=== PATIENT | female | born 1935 | race Hispanic/Latino ===

== ENCOUNTER 2018-04-09 12:55 | Outpatient (CLI) | payer MEDICARE ==
--- NOTE | 2018-04-09 14:08 | Cat Scan Report ---
FINAL REPORT EXAM: CT ABDOMEN PELVIS WO CON HISTORY: MICROSCOPIC HEMATURIA TECHNIQUE: CT examination of the ABDOMEN without IV contrast CT examination of the PELVIS without IV contrast PRIORS: None. FINDINGS: Surgically absent gallbladder. A smoothly marginated hypodense right hepatic lobe lesion is nonspecific and statistically most likely reflect a cyst or hemangioma. Average CT density near that of water favoring a cyst. It measures 9 mm. Normal-appearing adrenals, pancreas, and spleen. Normal caliber abdominal aorta with severe calcified atherosclerotic plaque. Normal caliber IVC. Surgically absent right kidney. Renal clips in the right renal fossa. No mass or cyst in the right renal fossa. Nonspecific lobulated margins of the left kidney may be persistent lobation, developmental variation. Nonspecific, smoothly marginated, low density, simple appearing left renal lesions are statistically most likely cysts. One 10 mm hypodense lesion is fatty suggesting angiomyolipoma. Left ureteral stent in place with distal coil in the bladder and proximal coil in left renal upper pole. No left hydronephrosis. 1 mm, 2 mm, and 7 mm nonobstructing left renal calculi. Nonspecific slight mural thickening in the proximal ureter and slight nonspecific fat stranding adjacent to the left renal pelvis and proximal left ureter. Similar findings also noted in urinary bladder. Intact abdominal wall with evidence suggesting prior hernia repair. No retroperitoneal adenopathy. No mesenteric mass. Large hiatal hernia containing the majority of the stomach. Otherwise normal appearing stomach and duodenum. No small bowel distention in the abdomen and pelvis. No pelvic free fluid. Urinary bladder decompressed containing distal coil of left ureteral stent. Uterus not visible. No adnexal abnormality. Normal-appearing rectum and sigmoid colon. No gross ascites, free air, or colonic distention. Prominent stool in ascending and proximal transverse colon may reflect mild right-sided constipation. Normal-appearing terminal ileum. Normal appendix. IMPRESSION: Multiple nonobstructing left renal calculi without hydronephrosis and left ureteral stent in place Nonspecific fat stranding and slight mural thickening in the region of the left renal pelvis, proximal left ureter, and urinary bladder may be edema related to left ureteral stent. 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
== END 2018-04-09 12:56 | disposition home or self-care (01) ==
LOC: CT 12:55
PROVIDERS: ATTEND Urology
DX: N20.0 Calculus of kidney (principal); R31.29 Other microscopic hematuria; N13.9 Obstructive and reflux uropathy, unspecified; E78.5 Hyperlipidemia, unspecified; D64.9 Anemia, unspecified; I12.9 Hypertensive chronic kidney disease with stage 1 through stage 4 chronic kidney disease, or unspecified chronic kidney disease; N18.2 Chronic kidney disease, stage 2 (mild); K44.9 Diaphragmatic hernia without obstruction or gangrene; F41.9 Anxiety disorder, unspecified; Z90.5 Acquired absence of kidney; Z96.0 Presence of urogenital implants; Z87.891 Personal history of nicotine dependence; Z90.49 Acquired absence of other specified parts of digestive tract; Z90.710 Acquired absence of both cervix and uterus
CPT/HCPCS: 74176

== ENCOUNTER 2018-12-22 11:51 | Day surgery (SDC) | payer MEDICARE ==
--- NOTE | 2018-12-21 12:29 | Short Stay Summary ---
Short Stay Documentation Date of service: 12/21/18 Narrative H&P: Marzena Coreas. MD MIKEL/MD Sarah/Boni Lazo MD) / Dr. Higuera--ID/ / /amitted [facility] ER left stone, renal failure (SOLITARY KIDNEY)/ cyston, stent 10-19-13/ ESWL 10-27-13 / KUB residual fragment left kidney 6mm / stage ESWL vs perc/ NEPHRECTOMY YEARS AGO - STONES-INFECTION/ pt has KUB / vicodin / STAGED LEFT ESWL (MAY NEED PERC)//2 done--wants another ESWL /KUB 1cm stone/renew percocet/perc tube removed/cysto stent REMOVED/cysto, stone extraction stent--stent fell out, perc LEFT IN [id number] fragment--LITHO LINK-LOW CITRATE/IV vanco/06-15-14 cysto, dilated ureteral stricture stent/24 hour urine (08-28-14) ca oxalate,-on urocit K/clamp perc tube/KUB i-no stone,good stent & perc tube/ - removed 10-17-14. STENT EXCHANGED 12-27-15/kub -stent good position / cr 1.5/ (05-20-16) KUB left stent good/ toviaz - NR / MYBRETRIQ 50MG X4-NR OAB KIT--VESICARE 5MG X 4--KEGELS BID, CM03-16-18 - MIXED INCONTINENCE - MUSCLE WEAKNESS PK FR 3CC A SEC PVR 55CC BLADDER CAPACITY 212CC CONSIDER MEDICATION, PTNS, INTERSTIM TEST 08-23-18--KUB 8MM RENAL STONE WITH STENT / DR. SHAYNA OWENS (PACEMAKER)--NEEDS CLEARANCE TRIAL OF TOVIAZ 8MG X 4 09-12-18 - LEFT ESWL (BZ)/ KUB (09-17-18) - + FRAG / RE EVAL NOV/ RENEW TOVIAZ DISCUSSED CYSTO & LEAVING STENT OUT / NORCO / KUB NO STONE STENT IN GOOD POSITION - History Past Medical History: hypertension, hyperlipidemia Past Surgical History: Other (RT NEPHRECTOMY, ESWL, CYSTO, STENT EXCHANGE) Social history: single - Allergies and Medications Current Medications: Allergies Penicillins Allergy (Severe, Verified 06/09/14 12:00) Anaphylaxis Home Medications Medication Instructions Recorded Confirmed Last Taken Type AtorvaSTATin [Lipitor] 20 mg PO QPM 05/21/15 12/14/18 09/08/18 20:00 History Cholecalciferol (Vitamin D3) 1,000 unit PO DAILY 05/21/15 12/14/18 09/08/18 09:00 History [Vitamin D3] Folic Acid [Folvite] 1 mg PO QDAY 04/21/18 12/14/18 Unknown History Potassium Citrate [Urocit-K] 15 meq PO DAILY 04/21/18 12/14/18 Unknown History Vitamin B Complex [Super B-50 1 each PO DAILY 04/21/18 12/14/18 09/08/18 09:00 History Complex] Ibuprofen [Motrin] 800 mg PO Q8HR PRN 08/31/18 12/14/18 Unknown History Irbesartan 300 mg PO DAILY 09/10/18 12/14/18 09/09/18 07:00 History amLODIPine [Norvasc] 10 mg PO DAILY 09/10/18 12/14/18 09/09/18 08:00 History L. Acidophilus/Pectin, [place] 1 each PO DAILY 12/14/18 12/14/18 Unknown History [Acidophilus Probiotic Capsule] Active Medications Levofloxacin/Dextrose (Levaquin 250mg/50ml) 250 mg in 50 mls @ 50 mls/hr IV PREOP NR; Protocol Stop: 12/22/18 01:00 - Physical exam General appearance: no acute distress, well-nourished Integumentary: no rash, no growths HEENT: Atraumatic, PERRLA, EOMI Lungs: Clear to auscultation, Normal air movement Breasts: deferred Heart: Regular rate, No murmurs Gastrointestinal: normal Female Genitourinary: normal Rectal Exam: deferred Extremities: no ischemia, No edema Neurological: Normal gait - Brief post op/procedure progress note Date of procedure: 12/22/18 Pre-op diagnosis: left hydronephrosis (solitary kidney) Post-op diagnosis: same Procedure: cysto, rpg, ureteoscopy, stent with external string (no stone) Anesthesia: GETA Surgeon: SHAR COULTER Estimated blood loss: none Pathology: none Condition: stable - Hospital course Hospital course: macrobid & norco on chart - Disposition Condition at discharge: Stable Disposition: DC-01 TO HOME OR SELFCARE Short Stay Discharge Plan Follow up with: HEIDI QUINTEROS MD [Primary Care Provider] - 7 Days
[~2018-12-22 11:51] MED LIST: LEVAQUIN 250MG/50ML 250 MG/50 ML BAG IV NR
[2018-12-22] MEDS ORDERED: LACTATED RINGERS 1,000 ML IV SCH (12:25)
[2018-12-22] MEDS ORDERED: DIPRIVAN 10 MG/ML IV ONE (12:38)
[2018-12-22] MEDS ORDERED: SUBLIMAZE ONE (12:38)
[2018-12-22] MEDS ORDERED: XYLOCAINE MPF 2% ONE (12:39)
[2018-12-22] MEDS ORDERED: LEVAQUIN 250MG/50ML 250 MG/50 ML BAG IV NR (13:11)
--- NOTE | 2018-12-22 13:26 | Anesthesia Day of Surgery ---
Anesthesia Day of Surgery - Day of Surgery Patient Examined: Yes Patient H&P Reviewed: Yes Patient is NPO: Yes Cardiac Clearance: Yes
--- NOTE | 2018-12-22 13:29 | Anesthesia Consultation ---
Anesthesia Consult and Med Hx Date of service: 12/22/18 - Airway Anesthetic Teeth Evaluation: Poor, Chipped (Rotten teeth) ROM Head & Neck: Adequate Mental/Hyoid Distance: Adequate Mallampati Class: Class II Intubation Access Assessment: Probably Good - Pre-Operative Health Status ASA Pre-Surgery Classification: ASA3 Proposed Anesthetic Plan: General - Pulmonary Hx Smoking: Yes (STOPPED X 10 YRS) SOB: Yes (exertional dyspnea) COPD: No (UNSURE) Hx Sleep Apnea: No (MUNIR PRE SCREEN LOW RISK.) - Cardiovascular System Hx Hypertension: Yes (X 40 YRS) Hx Angina: No Hx Cardia Arrhythmia: Yes (Bradycardia, Ectopic atrial rhythms, RBBB) Hx Pacemaker: Yes ([employer] [id number]; had full cardiac w/u [id number]) - Central Nervous System Hx Neuromuscular Disorder: No Hx Back Pain: Yes Hx Psychiatric Problems: Yes (Anxiety) - Gastrointestinal Hx Gastroesophageal Reflux Disease: No - Endocrine Hx Renal Disease: Yes (CKD) Hx End Stage Renal Disease: (CKD) Hx Liver Disease: No Hx Non-Insulin Dependent Diabetes: No Hx Thyroid Disease: No - Hematic Hx Anemia: Yes - Other Systems Hx Alcohol Use: Yes (OCCAS BEER/WINE) Hx Substance Use: No Hx Cancer: No Hx Obesity: No
[2018-12-22] MEDS ORDERED: ZOFRAN IV PRN (15:19)
[2018-12-22] MEDS ORDERED: DILAUDID IV PRN (15:19)
[2018-12-22] MEDS ORDERED: NEO SYNEPHRINE/NS Syringe(OR USE) IV ONE (15:43)
[2018-12-22] MEDS ORDERED: WATER FOR IRRIG STERILE IR ONE (15:50)
[2018-12-22 17:01] VITALS: BP 162/81
--- NOTE | 2018-12-22 17:33 | Operative Report ---
PREOPERATIVE DIAGNOSES: Left hydronephrosis, solitary kidney, history of kidney stones. POSTOPERATIVE DIAGNOSES: Left hydronephrosis, solitary kidney, history of kidney stones. No stone seen. PROCEDURE: Cystoscopy, left retrograde pyelogram, left flexible ureteroscopy, stent exchange (6-Monegasque 24 cm with an external string). SURGEON: Manny Lazo MD ANESTHESIA: General. ESTIMATED BLOOD LOSS: Minimal. FLUIDS: Crystalloid. COMPLICATIONS: No complications. INDICATIONS: This patient is an 83-year-old female with a long history of stones, right nephrectomy due to kidney stones. She has had a stent exchange for some time due to persistent renal stones. She underwent for previous lithotripsy and appears to be stone free. Today, I am going to and do a second look ureteroscopy before reattempt to remove her stent. DESCRIPTION OF PROCEDURE: The patient was taken to the operative suite, placed in a supine position. After adequate general anesthesia, placed in a dorsal lithotomy position, prepped and draped in a sterile fashion. Pancystourethroscopy was performed with 22-Monegasque Storz cystoscope, no acute bladder pathology except for some mild edema. The stent could be appreciated in the left collecting system. It was engaged with a grasper and pulled to the meatus. A 0.035 wire was advanced into the renal pelvis under fluoroscopic guidance. The cystoscope was then placed. Again, we were able to place a second wire followed by flexible ureteroscopy up to the renal pelvis. No stones could be appreciated. This had some edema. Because of that, I elected to leave another stent. The ureteroscope was removed. A 6-Monegasque 24 stent with an external string was left with hopes of removing it shortly in the next few days. She tolerated the procedure well. She was extubated and taken to recovery room. She will go home on [employer] and [employer]. JOB# [id number] [facility]
--- NOTE | 2018-12-23 07:32 | Fluoroscopy Report ---
FLUOROSCOPY RETROGRADE UROGRAPHY: HISTORY: Calculus of kidney, left ureteral stent exchange. FINDINGS: Fluoroscopy was provided by radiology during retrograde urography by the urologist. 10 fluoroscopic images were captured. The images demonstrate replacement of a left ureteral stent which adequately drains the left collecting system on the final image. No ureteral stones were visualized. No images of the right pyelogram were saved. IMPRESSION: Left ureteral stent exchange.
== END 2018-12-22 11:52 | disposition home or self-care (01) ==
LOC: OR 11:51
PROVIDERS: ATTEND Urology
DX: N13.30 Unspecified hydronephrosis (principal); I12.0 Hypertensive chronic kidney disease with stage 5 chronic kidney disease or end stage renal disease; N18.6 End stage renal disease; M19.90 Unspecified osteoarthritis, unspecified site; Q60.0 Renal agenesis, unilateral; D64.9 Anemia, unspecified; E78.2 Mixed hyperlipidemia; E78.00 Pure hypercholesterolemia, unspecified; F41.9 Anxiety disorder, unspecified; Z72.89 Other problems related to lifestyle; Z87.442 Personal history of urinary calculi; Z90.710 Acquired absence of both cervix and uterus; Z90.721 Acquired absence of ovaries, unilateral; Z88.0 Allergy status to penicillin; Z87.891 Personal history of nicotine dependence; Z79.899 Other long term (current) drug therapy; Z90.5 Acquired absence of kidney; Z79.01 Long term (current) use of anticoagulants; Z95.0 Presence of cardiac pacemaker; Z90.49 Acquired absence of other specified parts of digestive tract; Z98.890 Other specified postprocedural states
CPT/HCPCS: 52332; 52351; 74420; A4217; C1758; C1769; C2617; J1956; J2370; J2405; J2704; J3010; J7120; Q9967

== ENCOUNTER 2021-07-23 10:50 | Emergency (ER) | payer MEDICARE ==
--- NOTE | 2021-07-23 11:20 | Event Note ---
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 Further treatment and workup at subsequent clinical providers discretion. Patient/guardian urged not to elope from the ED as their condition may be serious if not clinically assessed and managed. Initial orders include: Labs EKG
[2021-07-23] MEDS ORDERED: amLODIPine 5 MG TAB PO ONE (11:57)
--- NOTE | 2021-07-23 11:58 | Emergency Department Report ---
ED General Adult HPI - General Chief complaint: High BP Stated complaint: HIGH BLOOD PRESSURE 210/100 Time Seen by Provider: 07/23/21 11:19 Source: patient, RN notes reviewed, old records reviewed Mode of arrival: Ambulatory Limitations: No Limitations - History of Present Illness Initial comments: The patient was evaluated in the emergency department for symptoms described in the history of present illness. He/she was evaluated in the context of the global COVID-19 pandemic, which necessitated consideration that the patient might be at risk for infection with the virus that causes COVID-19. Institutional protocols and algorithms that pertain to the evaluation of patients at risk for COVID-19 are in a state of rapid change based on information released by regulatory bodies including the CDC and federal and state organizations. These policies and algorithms were followed during the patient's care in the emergency department. Please note that these policies, procedures and recommendations changed on a rapid basis. Cardiology: [facility], Dr. Kemi Kruse Nephrology: Dr. Reddy Past medical history: Chronic renal insufficiency, hyperlipidemia, moderate aortic valve stenosis, carotid stenosis, BMI 26.2, hypertension, anxiety, osteoporosis. Current medications include: Potassium citrate, carvedilol, Eliquis, atorvastati n, vitamin D3, and clonidine HCl, 0.1 mg, every 6 hours, as needed blood pressure greater than 160 The patient also recently started carvedilol, 6.25 mg twice daily, about 2 weeks ago, as per the instruction of her glass blowing instructor. She cannot recall what medication she was previously on. The patient was referred to the emergency room by her grocery clerk checking for asymptomatic hypertension. Reportedly, her blood pressure was found to be 229/86. The patient denies headache, neck pain, chest pain, abdominal pain, urinary symptoms. She is COVID-19 vaccinated. She reports chronic shortness of breath, and chronic fatigue, present for months. However, she indicates that if not referred to the emergency room today, she would not have presented today on her own. She takes multivitamins but otherwise denies supplements. She reports that her blood pressure is "yoyoing", and typically improves when she takes clonidine at night. This is a prescription medication for her. The patient states that she checks her blood pressure frequently, and this contributes to some anxiety. She is going to follow-up with her private glass blowing instructor in 2 weeks. Today was her first visit with the aforementioned grocery clerk checking. She takes potassium citrate for kidney stone prevention. She has a solitary kidney. Improves with: none Worsens with: none - Related Data Home Medications Medication Instructions Recorded Confirmed Last Taken AtorvaSTATin [Lipitor] 20 mg PO QPM 05/21/15 12/22/18 12/21/18 09:00 Cholecalciferol (Vitamin D3) 1,000 unit PO DAILY 05/21/15 12/22/18 12/21/18 09:00 [Vitamin D3] Folic Acid [Folvite] 1 mg PO QDAY 04/21/18 12/22/18 12/21/18 09:00 Vitamin B Complex [Super B-50 1 each PO DAILY 04/21/18 12/14/18 09/08/18 09:00 Complex] L. Acidophilus/Pectin, [place] 1 each PO DAILY 12/14/18 12/22/18 12/21/18 09:00 [Acidophilus Probiotic Capsule] Previous Rx's Medication Instructions Recorded Last Taken Type amLODIPine 10 mg PO DAILY #30 tab 07/23/21 Unknown Rx Allergies Allergy/AdvReac Type Severity Reaction Status Date / Time Penicillins Allergy Severe Anaphylaxis Verified 06/09/14 12:00 ED Review of Systems ROS: Stated complaint: HIGH BLOOD PRESSURE 210/100 Other details as noted in HPI Constitutional: denies: chills, fever Eyes: denies: eye discharge ENT: denies: epistaxis Respiratory: shortness of breath (Chronic shortness of breath). denies: cough Cardiovascular: dyspnea on exertion. denies: chest pain Gastrointestinal: denies: abdominal pain, nausea, vomiting, hematemesis, melena, hematochezia Genitourinary: denies: dysuria Musculoskeletal: denies: back pain Skin: denies: lesions Neurological: weakness. denies: headache ED Past Medical Hx - Past Medical History Hx Hypertension: Yes (X 40 YRS) Hx Liver Disease: No Hx Renal Disease: Yes (CKD) Hx Arthritis: Yes Hx Kidney Stones: Yes Hx COPD: No (UNSURE) Hx HIV: No Additional medical history: angiomyolyphoma - Surgical History Hx Pacemaker: Yes ([employer] [id number]; had full cardiac w/u [id number]) Hx Cholecystectomy: Yes Hx Appendectomy: Yes Additional Surgical History: right kidney removedhysterectomyMultiple lithotripsies and stent on the left which is now removed. - Social History Smoking Status: Former Smoker Substance Use Type: None - Medications Home Medications: Home Medications Medication Instructions Recorded Confirmed Last Taken Type AtorvaSTATin [Lipitor] 20 mg PO QPM 05/21/15 12/22/18 12/21/18 09:00 History Cholecalciferol (Vitamin D3) 1,000 unit PO DAILY 05/21/15 12/22/18 12/21/18 09:00 History [Vitamin D3] Folic Acid [Folvite] 1 mg PO QDAY 04/21/18 12/22/18 12/21/18 09:00 History Vitamin B Complex [Super B-50 1 each PO DAILY 04/21/18 12/14/18 09/08/18 09:00 History Complex] L. Acidophilus/Pectin, [place] 1 each PO DAILY 12/14/18 12/22/18 12/21/18 09:00 History [Acidophilus Probiotic Capsule] amLODIPine 10 mg PO DAILY #30 tab 07/23/21 Unknown Rx ED Physical Exam - General Limitations: No Limitations General appearance: alert, in no apparent distress - Head Head exam: Present: atraumatic, normocephalic - Eye Eye exam: Present: normal appearance, PERRL, EOMI, other (Visual acuity intact to finger counting, color perception, reading at a close distance). Absent: nystagmus - ENT ENT exam: Present: normal exam, normal orophraynx, mucous membranes moist, normal external ear exam - Neck Neck exam: Present: normal inspection, full ROM. Absent: tenderness, men ingismus - Respiratory Respiratory exam: Present: normal lung sounds bilaterally. Absent: respiratory distress, wheezes, rales, rhonchi, stridor, chest wall tenderness, accessory muscle use, decreased breath sounds, prolonged expiratory - Cardiovascular Cardiovascular Exam: Present: regular rate, normal rhythm, systolic murmur (3 out of 6 crescendo decrescendo systolic murmur, heard strongest at the right and left second intercostal space). Absent: diastolic murmur, rubs, gallop - GI/Abdominal GI/Abdominal exam: Present: soft. Absent: distended, tenderness, guarding, rebound, rigid, pulsatile mass - Extremities Exam Extremities exam: Present: normal inspection, full ROM, other (2+ pulses noted in the bilateral upper and lower extremities. There is no palpable cord. negative Homans sign. Muscular compartments are soft. The pelvis is stable.). Absent: pedal edema, calf tenderness - Back Exam Back exam: Present: normal inspection, full ROM. Absent: tenderness, CVA tenderness (R), CVA tenderness (L), paraspinal tenderness, vertebral tenderness - Neurological Exam Neurological exam: Present: alert, oriented X3, normal gait, other (No facial dr oop. Tongue midline. Extraocular movements intact bilaterally. Facial sensation intact to light touch in V1, V2, V3 distribution bilaterally. 5 and a 5 strength in 4 extremities. Sensation intact to light touch in 4 extremities.). Absent: motor sensory deficit - Psychiatric Psychiatric exam: Present: normal affect, normal mood - Skin Skin exam: Present: warm, dry, intact, normal color. Absent: rash ED Course Vital Signs 07/23/21 07/23/21 07/23/21 11:32 12:33 13:27 Temperature 98.3 F Pulse Rate 60 60 66 Respiratory 16 Rate Blood Pressure 204/88 Blood Pressure 229/86 158/77 [Right] O2 Sat by Pulse 99 Oximetry ED Medical Decision Making - Lab Data Result diagrams: 07/23/21 11:43 07/23/21 11:43 Vital Signs 07/23/21 07/23/21 07/23/21 11:32 12:33 13:27 Temperature 98.3 F Pulse Rate 60 60 66 Respiratory 16 Rate Blood Pressure 204/88 Blood Pressure 229/86 158/77 [Right] O2 Sat by Pulse 99 Oximetry Lab Results 07/23/21 07/23/21 07/23/21 Range/Units 11:43 11:43 11:43 WBC 7.3 (4.5-11.0) K/mm3 RBC 4.05 (3.65-5.03) M/mm3 Hgb 9.9 L (10.1-14.3) gm/dl Hct 31.5 (30.3-42.9) % MCV 78 L (79-97) fl MCH 24 L (28-32) pg MCHC 31 (30-34) % RDW 16.0 H (13.2-15.2) % Plt Count 325 (140-440) K/mm3 Lymph % (Auto) 15.5 (13.4-35.0) % [place] % (Auto) 8.8 H (0.0-7.3) % Eos % (Auto) 2.0 (0.0-4.3) % Baso % (Auto) 0.7 (0.0-1.8) % Lymph # (Auto) 1.1 L (1.2-5.4) K/mm3 [place] # (Auto) 0.6 (0.0-0.8) K/mm3 Eos # (Auto) 0.1 (0.0-0.4) K/mm3 Baso # (Auto) 0.0 (0.0-0.1) K/mm3 Seg Neutrophils % 73.0 H (40.0-70.0) % Seg Neutrophils # 5.3 (1.8-7.7) K/mm3 Sodium 138 (137-145) mmol/L Potassium 5.6 H (3.6-5.0) mmol/L Chloride 103.9 (98-107) mmol/L Carbon Dioxide 24 (22-30) mmol/L Anion Gap 16 mmol/L BUN 24 H (7-17) mg/dL Creatinine 1.7 H (0.6-1.2) mg/dL Estimated GFR 29 ml/min BUN/Creatinine Ratio 14 % Glucose 114 H (65-100) mg/dL Calcium 9.8 (8.4-10.2) mg/dL Total Bilirubin 0.20 (0.1-1.2) mg/dL AST 13 (5-40) units/L ALT 8 (7-56) units/L Alkaline Phosphatase 74 (35-129) units/L Troponin T < 0.010 (0.00-0.029) ng/mL Total Protein 6.9 (6.3-8.2) g/dL Albumin 4.2 (3.9-5) g/dL Albumin/Globulin Ratio 1.6 % - EKG Data -: EKG Interpreted by Md EKG shows normal: sinus rhythm Rate: normal - EKG Data 07/23/21 13:46 The EKG today is interpreted at 11: 59 Sinus rhythm, rate 60 bpm. AL interval 228 ms. Left axis deviation. Left anterior fascicular block. Left ventricular hypertrophy. Incomplete right bundle branch block. Denies chest pain. This is an abnormal EKG. This is not a STEMI. - Medical Decision Making Differential diagnosis, including but not limited to: Hypertension, aortic stenosis, chronic renal insufficiency, encounter for medical screening exam ination Assessment and plan: 86-year-old female, who is afebrile with reassuring vital signs with exception of chronic hypertension. She was referred here for asymptomatic hypertension. Please reference the [employer] clinical policy on asymptomatic hypertension. Laboratory studies and EKG were ordered prior to my personal evaluation. Renal insufficiency is chronic. Potassium of 5.7 is reviewed and appreciated, likely secondary to underlying potassium citrate. Patient felt improved after observation here in the emergency room, and administration of Norvasc. Contacted covering cardiology, Dr. Carson, and discussed the patient's history, physical, and overall clinical impression. Patient will continue carvedilol, 6.25 twice daily, and we will initiate Norvasc, 10 mg daily. Patient to follow- up with her outpatient glass blowing instructor within the next week. She will call to make an expedited appointment. We will temporarily withhold potassium citrate, patient will need to follow-up with her primary care doctor, glass blowing instructor, or grocery clerk checking for repeat basic metabolic panel to check on potassium, and renal function. The patient does not want to be admitted to the hospital, and endorsed reliability and ability to follow-up as an outpatient. She was observed here for a prolonged period of time in emergency room without clinical deterioration. I suspect that her chronic fatigue and shortness of breath are likely secondary to advanced age, physical deconditioning, as well as her aortic stenosis. All questions answered with this patient, she endorsed understanding of instructions. Return precautions were reviewed Critical care attestation.: If time is entered above; I have spent that time in minutes in the direct care of this critically ill patient, excluding procedure time. ED Disposition Clinical Impression: Hypertension, Renal insufficiency, Aortic stenosis Disposition: 01 HOME / SELF CARE / HOMELESS Is pt being admited?: No Does the pt Need Aspirin: No Condition: Good Instructions: Hypertension (ED) Additional Instructions: Please continue carvedilol, 6.25 mg, twice daily as directed. Please continue clonidine, 0.1 mg, every 6 hours as needed for blood pressure greater than 160 mmHg. Temporarily discontinue potassium citrate tablets/medication, and follow-up with either your primary care doctor, glass blowing instructor or grocery clerk checking within the next 5 to 7 days for repeat basic metabolic panel/potassium check. In addition, would recommend that patient will check blood pressure twice daily, once in the morning, and once in the evening. Would not recommend checking blood pressure additionally, because checking blood pressure may lead to anxiety, which may lead to high blood pressure. Recommend that patient consume 2 to 3 cups of water per day, and avoid excessive salt consumption. Participate in physical activity and exercise as tolerated. Patient may also continue Eliquis, atorvastatin, and vitamin D3. Patient will start Norvasc, 10 mg daily. Please make certain to follow-up with your primary care doctor, glass blowing instructor or grocery clerk checking within the next 7 days for repeat blood pressure check. Please return to the emergency room right away with new pain, worsened pain, migration of pain, projectile vomiting, change in mental status, confusion, inability to tolerate liquid feeds, chest pain, new/different shortness of breath, or any new, worsened or different symptoms not present on the initial emergency room evaluation Referrals: JOSE ORTIZ MD [Staff Physician] - 3-5 Days JIMY REDDY MD [Staff Physician] - as needed UMA OWENS MD [Staff Physician] - 7-10 days
[2021-07-23 12:09] LABS: Basophils % (Auto) 0.7 % (0.0-1.8); Eosinophils # (Auto) 0.1 K/mm3 (0.0-0.4); Hematocrit 31.5 % (30.3-42.9); Hemoglobin 9.9 gm/dl (10.1-14.3); Lymphocytes # (Auto) 1.1 K/mm3 (1.2-5.4); Lymphocytes % (Auto) 15.5 % (13.4-35.0); Mean Corpuscular HGB Conc 31 % (30-34); Mean Corpuscular Volume 78 fl (79-97); Monocytes # (Auto) 0.6 K/mm3 (0.0-0.8); Monocytes % (Auto) 8.8 % (0.0-7.3); Platelet Count 325 K/mm3 (140-440); Red Blood Count 4.05 M/mm3 (3.65-5.03)
[2021-07-23 12:23] LABS: Albumin 4.2 g/dL (3.9-5); Calcium 9.8 mg/dL (8.4-10.2)
[2021-07-23] MEDS ORDERED: SODIUM POLYSTYRENE 15 GM/60 ML ORAL LIQD PO ONE (13:16)
[2021-07-23 15:09] VITALS: BP 202/94
--- NOTE | 2021-07-24 10:04 | Electrocardiograph Report ---
[facility] Test Date: 2021-07-23 Test Time: 11:59:16 Pat Name: BRAYDEN SALGADO Department: Room: Gender: F Auto Claim Representative: RADHA CASTANO: 1935 Requested By: SHERRI HERNANDEZ Order Number: [id number] Reading MD: Jeremy Shah Measurements Intervals [place] Rate: 60 P: ID: [id number] QRS: -50 QRSD: 120 T: 115 QT: 452 QTc: 452 Interpretive Statements Atrial-paced complexes Prolonged ID interval RBBB LVH with IVCD, LAD and secondary repol abnrm No previous ECG available for comparison Electronically Signed On 07-24-2021 10:03:59 EDT by Jeremy Shah
== END 2021-07-23 15:06 | disposition home or self-care (01) ==
LOC: ED 10:50
DX: I12.9 Hypertensive chronic kidney disease with stage 1 through stage 4 chronic kidney disease, or unspecified chronic kidney disease (principal); N18.9 Chronic kidney disease, unspecified; I35.0 Nonrheumatic aortic (valve) stenosis; M19.90 Unspecified osteoarthritis, unspecified site; Z87.442 Personal history of urinary calculi; Z86.018 Personal history of other benign neoplasm; Z98.890 Other specified postprocedural states; Z87.891 Personal history of nicotine dependence; Z88.0 Allergy status to penicillin
CPT/HCPCS: 36415; 80053; 84132; 84484; 85025; 93005; 99283

== ENCOUNTER 2021-09-12 17:22 | Emergency (ER) | payer MEDICARE ==
--- NOTE | 2021-09-12 18:40 | Event Note ---
ED Screening Note ED Screening Note: Patient is a 86-year-old female sent by Dr. Ann, ventilator specialist She states that she had a renal ultrasound performed 2 days ago and just got the results back today Was advised that she has a new left renal mass She states that she has a history of a right renal mass which led to a nephrectomy in the s She states over the last month she has had difficulty with her blood pressure She states that she was sent here due to hypertension and new renal mass This initial assessment/diagnostic orders/clinical plan/treatment(s) is/are subject to change based on patients health status, clinical progression and re- assessment by fellow clinical providers in the ED. Further treatment and workup at subsequent clinical providers discretion. Patient/guardian urged not to elope from the ED as their condition may be serious if not clinically assessed and managed. Initial orders include: labs, US, UA MAIN ed for MD arriaza
[2021-09-12 19:06] LABS: Basophils % (Auto) 0.7 % (0.0-1.8); Eosinophils # (Auto) 0.1 K/mm3 (0.0-0.4); Eosinophils % (Auto) 2.1 % (0.0-4.3); Hematocrit 31.5 % (30.3-42.9); Lymphocytes # (Auto) 1.2 K/mm3 (1.2-5.4); Lymphocytes % (Auto) 19.1 % (13.4-35.0); Mean Corpuscular HGB Conc 32 % (30-34); Mean Corpuscular Volume 79 fl (79-97); Monocytes # (Auto) 0.6 K/mm3 (0.0-0.8); Monocytes % (Auto) 9.1 % (0.0-7.3); Platelet Count 302 K/mm3 (140-440); Red Blood Count 4.01 M/mm3 (3.65-5.03); Red Cell Distribution Width 18.4 % (13.2-15.2)
[2021-09-12 19:26] LABS: Albumin 4.3 g/dL (3.9-5); Calcium 9.7 mg/dL (8.4-10.2)
[2021-09-12] MEDS ORDERED: cloNIDine 0.2 MG TAB PO ONE (21:14)
--- NOTE | 2021-09-12 21:27 | Emergency Department Report ---
HPI - General Chief Complaint: Recheck/Abnormal Lab/Rx Time Seen by Provider: 09/12/21 21:13 - HPI HPI: Room 36 The patient is an 86-year-old female present with chief abnormal renal ultrasound. The patient states she was receiving an outpatient evaluation of her kidneys and had a renal ultrasound performed as an outpatient earlier this week. The patient states her son received a telephone call from the transmission tester Dr. Reddy telling him that the patient had a mass on her kidney and that they should come to the emergency department. When asked how she is feeling the patient states she feels "pretty good" right now as she says she has felt fatigued earlier but she now believes she has got enough rest. Patient denies any other complaints ED Past Medical Hx - Past Medical History Hx Hypertension: Yes (X 40 YRS) Hx Renal Disease: Yes (CKD) Hx Arthritis: Yes Hx Kidney Stones: Yes Additional medical history: angiomyolyphoma - Surgical History Hx Pacemaker: Yes ([employer] [id number]; had full cardiac w/u [id number]) Hx Cholecystectomy: Yes Hx Appendectomy: Yes Additional Surgical History: right kidney removedhysterectomyMultiple lithotripsies and stent on the left which is now removed. - Family History Family history: no significant - Social History Smoking Status: Former Smoker (None [id number]) Substance Use Type: None - Medications Home Medications: Home Medications Medication Instructions Recorded Confirmed Last Taken Type AtorvaSTATin [Lipitor] 20 mg PO QPM 05/21/15 12/22/18 12/21/18 09:00 History Cholecalciferol (Vitamin D3) 1,000 unit PO DAILY 05/21/15 12/22/18 12/21/18 09:00 History [Vitamin D3] Folic Acid [Folvite] 1 mg PO QDAY 04/21/18 12/22/18 12/21/18 09:00 History Vitamin B Complex [Super B-50 1 each PO DAILY 04/21/18 12/14/18 09/08/18 09:00 History Complex] L. Acidophilus/Pectin, [place] 1 each PO DAILY 12/14/18 12/22/18 12/21/18 09:00 History [Acidophilus Probiotic Capsule] amLODIPine 10 mg PO DAILY #30 tab 07/23/21 Unknown Rx levoFLOXacin [Levaquin TAB] 500 mg PO QDAY #10 tablet 09/12/21 Unknown Rx ED Review of Systems ROS: Stated complaint: SENT BY DR SPENCE OFFICE Other details as noted in HPI Physical Exam - Physical Exam Vital Signs: Vital Signs 09/12/21 17:28 Temperature 98.1 F Pulse Rate 60 Respiratory 24 Rate Blood Pressure 208/89 O2 Sat by Pulse 99 Oximetry ED Course Vital Signs 09/12/21 17:28 Temperature 98.1 F Pulse Rate 60 Respiratory 24 Rate Blood Pressure 208/89 O2 Sat by Pulse 99 Oximetry - Consultations Consultation #1: 09/12/21 21:28 Prosthetic Lab Technician paged 09/12/21 21:[address] Kilgore- will review patient's records and call back 09/12/21 21:[address] Kilgore-states outpatient ultrasound showed moderate left hydronephrosis with an absent right kidney and recommended a CT abdomen pelvis. He states the patient had an appointment with a urologist Dr. Elio Black this afternoon however staff has been unable to contact the family. The Son was finally reached and decided to bring patient to the emergency department 09/12/21 21:[address] Chauhan- may have to transfer to [facility] where we have privileges. Will decide after CT abdomen pelvis 09/12/21 22:[address] Chauhan-can have patient follow-up in office tomorrow or day after. ED Medical Decision Making - Lab Data Result diagrams: 09/12/21 18:46 09/12/21 18:46 Laboratory Tests 09/12/21 09/12/21 09/12/21 18:46 18:46 22:49 WBC 6.2 RBC 4.01 Hgb 10.0 L Hct 31.5 MCV 79 MCH 25 L MCHC 32 RDW 18.4 H Plt Count 302 Lymph % (Auto) 19.1 [place] % (Auto) 9.1 H Eos % (Auto) 2.1 Baso % (Auto) 0.7 Lymph # (Auto) 1.2 [place] # (Auto) 0.6 Eos # (Auto) 0.1 Baso # (Auto) 0.0 Seg Neutrophils % 69.0 Seg Neutrophils # 4.3 Sodium 139 Potassium 5.1 H Chloride 101.3 Carbon Dioxide 24 Anion Gap 19 BUN 30 H Creatinine 1.8 H Estimated GFR 27 BUN/Creatinine Ratio 17 Glucose 107 H Calcium 9.7 Total Bilirubin 0.20 AST 14 ALT 10 Alkaline Phosphatase 74 Total Protein 6.9 Albumin 4.3 Albumin/Globulin Ratio 1.7 Urine Color Yellow Urine Turbidity Cloudy Urine pH 6.0 Ur Specific [place] 1.015 Urine Protein 100 mg/dl Urine Glucose (UA) Neg Urine Ketones Tr Urine Blood Neg Urine Nitrite Neg Urine Bilirubin Neg Urine Urobilinogen < 2.0 Ur Leukocyte Esterase Sm Urine WBC (Auto) 115.0 H Urine RBC (Auto) 95.0 U Epithel Cells (Auto) 3.0 Urine Yeast (Budding) 3+ - Radiology Data Radiology results: report reviewed (CT abdomen pelvis), image reviewed (CT abdomen pelvis) [facility] [address] [place] [address] Cat Scan Report Signed Patient: BRAYDEN SALGADO MR# : [id number] : 1935 Acct:[id number] Age/Sex: 86 / F ADM Date: 09/12/21 Loc: ED Attending Dr: Ordering Physician: LELAND NOLAN MD Date of Service: 09/12/21 Procedure(s): CT abdomen pelvis wo con Accession Number(s): [id number] cc: LELAND NOLAN MD CT ABDOMEN AND PELVIS WITHOUT CONTRAST INDICATION / CLINICAL INFORMATION: History of abnormal renal ultrasound. TECHNIQUE: Axial CT images were obtained through the abdomen and pelvis without IV contrast. All CT scans at this location are performed using CT dose reduction for ALARA by means of automated exposure control. COMPARISON: 04/09/2018 FINDINGS: LOWER CHEST: There is a large hiatal hernia containing the entirety of the stomach, not significant change from prior CT. AORTA / ARTERIES: Moderate atherosclerotic calcification without acute abnormality. IVC / VEINS: No significant abnormality. LYMPH NODES: No significant adenopathy. COLON: Diverticulosis without acute inflammation. APPENDIX: No significant abnormality. STOMACH / SMALL BOWEL: Large hiatal hernia with the entirety of the stomach within the hernia. PERITONEUM: No free fluid. No free air. No fluid collection. LIVER: No significant abnormality. GALLBLADDER: Cholecystectomy. BILE DUCTS: No significant abnormality. PANCREAS: No significant abnormality. SPLEEN: No significant abnormality. ADRENALS: No si gnificant abnormality. RIGHT KIDNEY / URETER: Surgically absent kidney but the distal ureter remains and has periureteral inflammation. LEFT KIDNEY / URETER: Multiple calcifications are seen scattered throughout the kidney with the largest calcification measuring up to 0.7 cm. There are multiple renal cysts. There is prominence of the extra renal pelvis. URINARY BLADDER: No significant abnormality. REPRODUCTIVE ORGANS: Uterus is absent. No significant adnexal abnormality. SKELETAL SYSTEM: No significant abnormality. ADDITIONAL FINDINGS: Multiple mesh coils are noted in the anterior abdominal wall. IMPRESSION: 1. Patient is status post right nephrectomy. The distal portion of the right ureter is intact and demonstrates periureteral inflammation suggesting ureteritis. 2. There is nonobstructing nephrolithiasis of the left kidney with no hydronephrosis but multiple renal cysts and a prominent extrarenal pelvis. 3. There is a large hiatal hernia containing the entirety of the stomach, not significant change from previous CT. 4. Other findings as above Signer Name: Porfirio Landon DO Signed: 09/12/2021 10:21 PM Workstation Name: [id number] Transcribed By: SHANNON Dictated By: PORFIRIO LANDON DO Electronically Authenticated By: PORFIRIO LANDON DO Signed Date/Time: 09/12/212220 DD/ 10 TD/TT: Print Cancel Critical care attestation.: If time is entered above; I have spent that time in minutes in the direct care of this critically ill patient, excluding procedure time. ED Disposition Clinical Impression: UTI (urinary tract infection), Renal cyst Disposition: 01 HOME / SELF CARE / HOMELESS Is pt being admited?: No Does the pt Need Aspirin: No Condition: Stable Instructions: Urinary Tract Infection, Adult Additional Instructions: Return to the emergency department should you develop worsening symptoms, inability to tolerate food or liquids, high fever or any other concerns Prescriptions: levoFLOXacin [Levaquin TAB] 500 mg PO QDAY #10 tablet Referrals: Dr. Black, [place] [facility] [Other] - KIRAN (Contact your urologist at 08:30 to schedule an appointment to be seen 09/13/2021 or 09/14/2021) Time of Disposition: 23:15
--- NOTE | 2021-09-12 22:26 | Cat Scan Report ---
CT ABDOMEN AND PELVIS WITHOUT CONTRAST INDICATION / CLINICAL INFORMATION: History of abnormal renal ultrasound. TECHNIQUE: Axial CT images were obtained through the abdomen and pelvis without IV contrast. All CT scans at this location are performed using CT dose reduction for ALARA by means of automated exposure control. COMPARISON: 04/09/2018 FINDINGS: LOWER CHEST: There is a large hiatal hernia containing the entirety of the stomach, not significant c hange from prior CT. AORTA / ARTERIES: Moderate atherosclerotic calcification without acute abnormality. IVC / VEINS: No significant abnormality. LYMPH NODES: No significant adenopathy. COLON: Diverticulosis without acute inflammation. APPENDIX: No significant abnormality. STOMACH / SMALL BOWEL: Large hiatal hernia with the entirety of the stomach within the hernia. PERITONEUM: No free fluid. No free air. No fluid collection. LIVER: No significant abnormality. GALLBLADDER: Cholecystectomy. BILE DUCTS: No significant abnormality. PANCREAS: No significant abnormality. SPLEEN: No significant abnormality. ADRENALS: No significant abnormality. RIGHT KIDNEY / URETER: Surgically absent kidney but the distal ureter remains and has periureteral in flammation. LEFT KIDNEY / URETER: Multiple calcifications are seen scattered throughout the kidney with the large st calcification measuring up to 0.7 cm. There are multiple renal cysts. There is prominence of the e xtra renal pelvis. URINARY BLADDER: No significant abnormality. REPRODUCTIVE ORGANS: Uterus is absent. No significant adnexal abnormality. SKELETAL SYSTEM: No significant abnormality. ADDITIONAL FINDINGS: Multiple mesh coils are noted in the anterior abdominal wall. IMPRESSION: 1. Patient is status post right nephrectomy. The distal portion of the right ureter is intact and dem onstrates periureteral inflammation suggesting ureteritis. 2. There is nonobstructing nephrolithiasis of the left kidney with no hydronephrosis but multiple kamlesh al cysts and a prominent extrarenal pelvis. 3. There is a large hiatal hernia containing the entirety of the stomach, not significant change from previous CT. 4. Other findings as above Signer Name: Porfirio Tom DO Signed: 09/12/2021 10:21 PM Workstation Name: [id number]
--- NOTE | 2021-09-12 22:40 | Ultrasound Report ---
ULTRASOUND RENAL INDICATION / CLINICAL INFORMATION: hx of one kidney, pt reports left renal mass. COMPARISON: CT abdomen pelvis from same date. FINDINGS: RIGHT KIDNEY: Surgically absent. LEFT KIDNEY: Length = 11.6 cm. - Echogenicity: Mildly echogenic. - Cortical Thickness: Normal. - Hydronephrosis: Mild pelviectasis but no definite hydronephrosis. - Cyst / Mass: Multiple simple appearing cysts measuring up to 2.6 cm. - Stones: None seen. URINARY BLADDER: No significant abnormality. FREE FLUID: None. ADDITIONAL FINDINGS: None. IMPRESSION: 1. Mild left renal pelviectasis but no definite hydronephrosis. 2. Multiple left renal simple cysts. 3. Absent right kidney. Signer Name: Suzanne Us MD Signed: 09/12/2021 10:36 PM Workstation Name: [id number]
[2021-09-12 22:58] LABS: Bilirubin,Urine NEG (Negative); Blood,Urine NEG (Negative); Color,Urine Yellow (Yellow); Urobilinogen,Urine < 2.0 mg/dL (<2.0)
[2021-09-13 01:33] VITALS: BP 153/78
== END 2021-09-13 01:34 | disposition home or self-care (01) ==
LOC: ED 17:22
DX: N39.0 Urinary tract infection, site not specified (principal); N28.1 Cyst of kidney, acquired; I12.9 Hypertensive chronic kidney disease with stage 1 through stage 4 chronic kidney disease, or unspecified chronic kidney disease; N18.9 Chronic kidney disease, unspecified; M19.90 Unspecified osteoarthritis, unspecified site; Z87.891 Personal history of nicotine dependence; Z90.49 Acquired absence of other specified parts of digestive tract; Z88.0 Allergy status to penicillin; Z79.899 Other long term (current) drug therapy
CPT/HCPCS: 36415; 74176; 76775; 80053; 81001; 85025; 99284

== ENCOUNTER 2021-12-11 08:55 | Outpatient (CLI) | payer MEDICARE ==
[2021-12-11] MEDS ORDERED: FUROSEMIDE 20 MG/2 ML INJ IV NR (09:35)
[2021-12-11 10:21] VITALS: BP 168/84
--- NOTE | 2021-12-11 12:18 | Nuclear Medicine Report ---
Renal Scan HISTORY: N13.39 OTHER HYDRONEPHROSIS. Here to evaluate left renal hydronephrosis and left renal func tion, right kidney is surgically absent TECHNIQUE: Patient was given 5.5 mCi of technetium MAG3 and 20 mg of Lasix IV 20 minutes postinjecti on. COMPARISON: CT abdomen/pelvis from 09/12/2021 and 04/09/2018 FINDINGS: Radiotracer concentration in the left renal parenchyma is noted with fairly prompt concent ration and the collecting system. There is also fairly prompt excretion reaching the urinary bladder. There is dilatation of the left renal pelvis which is persistent on all of the images but again ther e is excretion reaching the bladder which goes against any high-grade obstruction. Normalized ERPF MAG3 in mL per minute is 75. The time activity curve shows general radiotracer accumu lation up to approximately 20 minutes where a plateau has reached. At the 20 minute george, IV Lasix wa s given and the plateau is relatively maintained over the next 6 minutes (26 minutes total) until the re is a gentle gradual excretion. The time from Lasix to half Lasix is greater than 20 minutes. IMPRESSION: Abnormal left kidney as outlined above. Signer Name: Kwame Dennison MD Signed: 12/11/2021 12:13 PM Workstation Name: [id number]
== END 2021-12-11 08:56 | disposition home or self-care (01) ==
LOC: NM 08:55
PROVIDERS: ATTEND Urology
DX: N13.30 Unspecified hydronephrosis (principal)
CPT/HCPCS: 78708; A9562; J1940

== ENCOUNTER 2022-01-06 05:50 | Day surgery (SDC) | payer MEDICARE ==
[2022-01-02 13:02] LABS: Hematocrit 29.6 % (30.3-42.9); Hemoglobin 9.9 gm/dl (10.1-14.3); Mean Corpuscular HGB Conc 34 % (30-34); Mean Corpuscular Volume 76 fl (79-97); Platelet Count 290 K/mm3 (140-440); Red Blood Count 3.88 M/mm3 (3.65-5.03); Red Cell Distribution Width 16.9 % (13.2-15.2)
[2022-01-02 13:15] LABS: Albumin 4.4 g/dL (3.9-5); Calcium 10.2 mg/dL (8.4-10.2)
--- NOTE | 2022-01-02 14:02 | Anesthesia Consultation ---
Anesthesia Consult and Med Hx Date of service: 01/06/22 - Airway Anesthetic Teeth Evaluation: Poor (evidence of decay; denies loose teeth) ROM Head & Neck: Adequate Mental/Hyoid Distance: Adequate Mallampati Class: Class II Intubation Access Assessment: Probably Good (previous LMA 4) - Pulmonary Exam CTA: Yes - Cardiac Exam Cardiac Exam: RRR (grade 2/6 systolic murmur) - Pre-Operative Health Status ASA Pre-Surgery Classification: ASA3 Proposed Anesthetic Plan: General - Pulmonary Hx Smoking: Yes (former smoker quit 13yrs) SOB: Yes (mild DUONG; stable) COPD: (PT UNSURE) - Cardiovascular System Hx Hypertension: Yes (labile) Hx Heart Attack/AMI: No Hx Percutaneous Transluminal Coronary Angioplasty (PTCA): No Hx Cardia Arrhythmia: Yes (hx AVB; paroxysmal a-fib, last dose eliquis 01/01/22)) Hx Pacemaker: Yes Hx Valvular Heart Disease: Yes (mild ) Hx Heart Murmur: Yes - Central Nervous System CVA: No Hx Back Pain: Yes - Gastrointestinal Hx Gastroesophageal Reflux Disease: No (large hiatal hernia) - Endocrine Hx Renal Disease: Yes (CKD; hx nephrectomy) Hx Liver Disease: No Hx Insulin Dependent Diabetes: No Hx Non-Insulin Dependent Diabetes: No Hx Thyroid Disease: No - Hematic Hx Anemia: Yes - Other Systems Hx Obesity: No - Additional Comments Anesthesia Medical History Comments: No hx anesthetic complications. TTE 08/2021 shows normal LV function, mild . Most recent cardiology office note reviewed. Patient had recent preop medical evaluations; records requested.
[~2022-01-06 05:50] MED LIST changes: +LACTATED RINGERS 1,000 ML IV SCH; -LEVAQUIN 250MG/50ML 250 MG/50 ML BAG IV NR
[2022-01-06] MEDS ORDERED: LACTATED RINGERS 1,000 ML IV SCH (06:00)
[2022-01-06 06:52] LABS: INR 0.84 (0.87-1.13)
[2022-01-06 06:53] LABS: Partial Thromboplastin Time 30.6 Sec. (24.2-36.6)
[2022-01-06] MEDS ORDERED: GENTAMICIN/NS 80 MG/100 ML 100 ML IV SCH (07:00)
[2022-01-06] MEDS ORDERED: LIDOCAINE MPF (2%) 20 MG/1 ML VIAL 5 ML ONE (07:20)
[2022-01-06] MEDS ORDERED: propofoL 200 MG/20 ML VIAL IV ONE (07:20)
[2022-01-06] MEDS ORDERED: fentaNYL 100 MCG/2 ML INJ ONE (07:20)
--- NOTE | 2022-01-06 07:26 | Anesthesia Day of Surgery ---
Anesthesia Day of Surgery - Day of Surgery Patient Examined: Yes Patient H&P Reviewed: Yes Patient is NPO: Yes
[2022-01-06] MEDS ORDERED: HYDROmorphone 1 MG/1 ML INJ IV PRN (07:30)
[2022-01-06] MEDS ORDERED: HYDROcodone/ACETAMINOPHEN 5-325 MG TAB PO PRN (07:30)
[2022-01-06] MEDS ORDERED: ONDANSETRON 4 MG/2 ML INJ IV PRN (07:30)
[2022-01-06] MEDS ORDERED: ePHEDrine SULFATE 50 MG/1 ML INJ ONE (07:36)
[2022-01-06] MEDS ORDERED: SUCCINYLCHOLINE CHLORIDE 200 MG/10 ML INJ MDV ONE (07:36)
[2022-01-06] MEDS ORDERED: GENTAMICIN/NS 80 MG/100 ML 100 ML IV ONE (07:38)
[2022-01-06] MEDS ORDERED: WATER FOR IRRIG STERILE 2000 ML IR ONE (09:25)
--- NOTE | 2022-01-06 09:30 | Short Stay Summary ---
Short Stay Documentation Date of service: 01/06/22 - History H&P: obtained from office - Allergies and Medications Current Medications: Allergies Penicillins Allergy (Severe, Verified 12/25/21 16:10) Swelling Home Medications Medication Instructions Recorded Confirmed Last Taken Type AtorvaSTATin [Lipitor] 20 mg PO QPM 05/21/15 12/25/21 12/21/18 09:00 History Cholecalciferol (Vitamin D3) 1,000 unit PO DAILY 05/21/15 12/25/21 12/21/18 09:00 History [Vitamin D3] Apixaban [Eliquis] 2.5 mg PO BID 12/25/21 12/25/21 Unknown History Potassium Citrate [Urocit-K 15] 15 meq PO BID 12/25/21 12/25/21 Unknown History carvediloL [Coreg] 6.25 mg PO BID 12/25/21 12/25/21 Unknown History cloNIDine [Catapres] 0.1 mg PO PRN PRN 12/25/21 12/25/21 Unknown History NIFEdipine [Nifedipine ER] 60 mg PO BID 01/02/22 01/02/22 Unknown History hydroCHLOROthiazide [HCTZ] 25 mg PO QDAY 01/02/22 01/02/22 Unknown History Active Medications Hydrocodone Bitart/Acetaminophen (Hydrocodone/Acetaminophen 5-325 Mg Tab) 2 each PO ONCE PRN PRN Reason: Pain, Moderate (4-6) Hydromorphone HCl (Hydromorphone 1 Mg/1 Ml Inj) 0.25 mg IV Q10MIN PRN PRN Reason: Pain, Moderate (4-6) Stop: 01/06/22 20:00 Lactated Ringer's (Lactated Ringers) 1,000 mls @ 100 mls/hr IV DIRECT OSIRIS Stop: 01/06/22 23:59 Last Admin: 01/06/22 06:30 Dose: 100 mls/hr Ondansetron HCl (Ondansetron 4 Mg/2 Ml Inj) 4 mg IV ONCE PRN PRN Reason: Nausea And Vomiting Stop: 01/06/22 10:00 - Brief post op/procedure progress note Date of procedure: 01/06/22 Pre-op diagnosis: left hydro Post-op diagnosis: same Procedure: cysto, rpg, left ureteroscopy , stent with internal string Anesthesia: GETA Surgeon: SHAR COULTER Estimated blood loss: none Condition: stable - Hospital course Hospital course: macrobid, ultram, norco, post op info on chart - Disposition Condition at discharge: Stable Disposition: 01 HOME / SELF CARE / HOMELESS Short Stay Discharge Plan Follow up with: KOFI NAVARRETE MD [Primary Care Provider] - 7 Days
--- NOTE | 2022-01-06 10:31 | Post Anesthesia Evaluation ---
- Post Anesthesia Evaluation Patient Participated: Yes Airway Patent: Yes Stable Respiratory Function: Yes Nausea/Vomiting: No Temp > 96.8F: Yes Pain Manageable: Yes Adequeate Hydration: Yes Anesthesia Complications: No
[2022-01-06 10:52] VITALS: BP 147/68
--- NOTE | 2022-01-06 12:25 | Operative Report ---
DATE OF SURGERY: 01/06/2022 PREOPERATIVE DIAGNOSES: Left hydronephrosis, status post right nephrectomy in the remote past (solitary kidney). POSTOPERATIVE DIAGNOSES: Left hydronephrosis, status post right nephrectomy in the remote past (solitary kidney), ureteral stricture. PROCEDURES PERFORMED: Cystoscopy, left retrograde pyelogram, left ureteroscopy, double-J stent placement (6-Amharic 22 cm with an internal string). SURGEON: Manny Lazo MD ANESTHESIA: General. ESTIMATED BLOOD LOSS: Minimal. FLUIDS: Crystalloid. COMPLICATIONS: No complications. INDICATIONS: This patient is an 86-year-old female known to our service, last seen was pre-[facility], which is 2019. She had some previous surgery done at another hospital. We were able to review some of those records. She has had a long history of solitary kidney with multiple stent exchanges. Presently, she is without a stent. No real symptoms. Nuclear scan suggested obstructive uropathy with a creatinine of 1.8. She presents now for cystoscopy, possible stent placement. Risks, benefits, complications were explained. DESCRIPTION OF PROCEDURE: The patient was taken to the operative suite, placed in a supine position. After adequate general anesthesia, placed in the dorsal lithotomy position, prepped and draped in a sterile fashion. Pancystourethroscopy was performed with a 22-Amharic Storz cystoscope. The patient had some diffuse trabeculation. Left retrograde pyelogram was obtained with an 8-Amharic [place] catheter and 8 mL of contrast. Contrast went up to the level of L4 and then complete blockage. At that point, multiple attempts to pass a 0.035 Glidewire were unsuccessful. Therefore, rigid ureteroscopy was performed. Multiple attempts to advance a 0.035 Glidewire were unsuccessful. She had a very pinpoint opening. I was able to advance a 0.025 wire into the kidney. A 6-Amharic 22 cm stent, I was able to advance past the stricture with some difficulty. Fluoroscopy confirmed adequate position, internal string was left indwelling. Bladder was drained. She was extubated and taken to recovery room. She will go home on Macrobid, Ultram and [place]. Followup in the office. She will probably require multiple stent exchanges in the future. TID: [id number] RECEIPT: [id number] SAM/ASHLEE/ANSON
--- NOTE | 2022-01-06 13:48 | Fluoroscopy Report ---
Retrograde urography 5 views INDICATION: Flank pain IMPRESSION: Fluoroscopically guided placement of left double-J ureteral stent Fluoroscopy time: 2.22 minutes. Fluoroscopic images: 5. Signer Name: Evan Rosenthal MD Signed: 01/06/2022 1:43 PM Workstation Name: [email or web address]
== END 2022-01-06 10:35 | disposition home or self-care (01) ==
LOC: OR 05:50
PROVIDERS: ATTEND Urology
DX: N13.1 Hydronephrosis with ureteral stricture, not elsewhere classified (principal); Z20.822 Contact with and (suspected) exposure to COVID-19; I10 Essential (primary) hypertension; D64.9 Anemia, unspecified; I42.9 Cardiomyopathy, unspecified; E78.00 Pure hypercholesterolemia, unspecified; I48.91 Unspecified atrial fibrillation; M19.90 Unspecified osteoarthritis, unspecified site; J44.9 Chronic obstructive pulmonary disease, unspecified; K21.9 Gastro-esophageal reflux disease without esophagitis; Z90.710 Acquired absence of both cervix and uterus; Z98.890 Other specified postprocedural states; Z79.899 Other long term (current) drug therapy; Z88.0 Allergy status to penicillin; Z87.891 Personal history of nicotine dependence; Z87.440 Personal history of urinary (tract) infections; Z90.49 Acquired absence of other specified parts of digestive tract; Z95.0 Presence of cardiac pacemaker; Z90.721 Acquired absence of ovaries, unilateral; Z87.442 Personal history of urinary calculi
CPT/HCPCS: 36415; 52332; 52351; 74420; 80053; 85027; 85610; 85730; J0330; J1580; J2704; J3010; J3490; J7120; Q9967; U0003; C1758; C1769; C2617

== ENCOUNTER 2022-04-10 08:56 | Outpatient (CLI) | payer MEDICARE ==
--- NOTE | 2022-04-10 14:50 | Nuclear Medicine Report ---
Nuclear medicine parathyroid scan HISTORY: Elevated calcium levels, chronic kidney disease, evaluate parathyroid function. TECHNIQUE: 20 mCi of technetium 99m sestamibi was administered. Initial and 3 hour delayed imaging wa s obtained of the head, neck and upper chest. COMPARISON: None. FINDINGS: There is homogeneous uptake of the radiotracer in the thyroid bed. No focal increased activ ity is identified on the initial or delayed images to suggest parathyroid adenoma. IMPRESSION: No evidence for parathyroid adenoma. Signer Name: Juan Mitchell Jr, MD Signed: 04/10/2022 2:45 PM Workstation Name: [id number]
== END 2022-04-10 08:57 | disposition home or self-care (01) ==
LOC: NM 08:56
PROVIDERS: ATTEND Internal Medicine Nephrology
DX: I12.9 Hypertensive chronic kidney disease with stage 1 through stage 4 chronic kidney disease, or unspecified chronic kidney disease (principal); N18.4 Chronic kidney disease, stage 4 (severe); N20.0 Calculus of kidney; D63.1 Anemia in chronic kidney disease
CPT/HCPCS: 78070; A9500

== ENCOUNTER 2022-07-16 05:39 | Day surgery (SDC) | payer MEDICARE ==
[2022-07-11 11:06] LABS: Hematocrit 31.7 % (30.3-42.9); Hemoglobin 10.1 gm/dl (10.1-14.3); Mean Corpuscular HGB Conc 32 % (30-34); Mean Corpuscular Volume 78 fl (79-97); Platelet Count 327 K/mm3 (140-440); Red Blood Count 4.08 M/mm3 (3.65-5.03); Red Cell Distribution Width 16.3 % (13.2-15.2)
[2022-07-11 11:29] LABS: Albumin 4.3 g/dL (3.9-5); Calcium 10.1 mg/dL (8.4-10.2)
[2022-07-16] MEDS ORDERED: SODIUM CHLORIDE 0.9% 1000 ML 1,000 ML IV SCH (06:00)
--- NOTE | 2022-07-16 07:35 | Anesthesia Consultation ---
Anesthesia Consult and Med Hx Date of service: 07/16/22 - Airway Anesthetic Teeth Evaluation: Poor (denies loose teeth), Dentures (upper) Mental/Hyoid Distance: Adequate Mallampati Class: Class III Intubation Access Assessment: Probably Good (previous easy intubation with MAC 3) - Pulmonary Exam CTA: Yes - Cardiac Exam Cardiac Exam: RRR (systolic murmur) - Pre-Operative Health Status ASA Pre-Surgery Classification: ASA3 Proposed Anesthetic Plan: General - Pulmonary Hx Smoking: Yes (former smoker) SOB: Yes (chronic stable DUONG) - Cardiovascular System Hx Hypertension: Yes (took antihypertensive this morning) Hx Cardia Arrhythmia: Yes (hx AVB; paroxysmal a-fib, eliquis held x1wk)) Hx Pacemaker: Yes Hx Valvular Heart Disease: Yes (mild ) - Central Nervous System CVA: No - Endocrine Hx Renal Disease: Yes (CKD s/p nephrectomy) Hx Liver Disease: No Hx Insulin Dependent Diabetes: No Hx Non-Insulin Dependent Diabetes: No Hx Thyroid Disease: No - Additional Comments Anesthesia Medical History Comments: No hx anesthetic complications.
--- NOTE | 2022-07-16 07:36 | Anesthesia Day of Surgery ---
Anesthesia Day of Surgery - Day of Surgery Patient Examined: Yes Patient H&P Reviewed: Yes Patient is NPO: Yes Beta Blockers: Yes
[2022-07-16] MEDS ORDERED: LIDOCAINE MPF (2%) 20 MG/1 ML VIAL 5 ML ONE (07:46)
[2022-07-16] MEDS ORDERED: ONDANSETRON 4 MG/2 ML INJ ONE (07:46)
[2022-07-16] MEDS ORDERED: fentaNYL 100 MCG/2 ML INJ ONE (07:46)
[2022-07-16] MEDS ORDERED: propofoL 200 MG/20 ML VIAL IV ONE (07:47)
[2022-07-16] MEDS ORDERED: HYDROmorphone 0.5 MG/0.5 ML INJ IV PRN (08:00)
[2022-07-16] MEDS ORDERED: GENTAMICIN/NS 80 MG/100 ML 100 ML IV SCH (08:00)
[2022-07-16] MEDS ORDERED: HYDROcodone/ACETAMINOPHEN 5-325 MG TAB PO PRN (08:00)
[2022-07-16] MEDS ORDERED: ONDANSETRON 4 MG/2 ML INJ IV PRN (08:00)
[2022-07-16] MEDS ORDERED: GENTAMICIN/NS 80 MG/100 ML 100 ML IV ONE (08:02)
[2022-07-16] MEDS ORDERED: ROCURONIUM 50 MG/5 ML INJ IV ONE (08:12)
[2022-07-16] MEDS ORDERED: WATER FOR IRRIG STERILE 2000 ML IR ONE (08:35)
[2022-07-16] MEDS ORDERED: NEOSTIGMINE 10MG/10 ML INJ MDV ONE (08:41)
[2022-07-16] MEDS ORDERED: GLYCOPYRROLATE 0.4 MG/2 ML INJ ONE (08:41)
--- NOTE | 2022-07-16 08:44 | Short Stay Summary ---
Short Stay Documentation Date of service: 07/16/22 - History H&P: obtained from office - Allergies and Medications Current Medications: Allergies Penicillins Allergy (Severe, Verified 12/25/21 16:10) Swelling Home Medications Medication Instructions Recorded Confirmed Last Taken Type AtorvaSTATin [Lipitor] 20 mg PO QPM 05/21/15 07/08/22 12/21/18 09:00 History Cholecalciferol (Vitamin D3) 1,000 unit PO DAILY 05/21/15 07/08/22 12/21/18 09:00 History [Vitamin D3] Apixaban [Eliquis] 2.5 mg PO BID 12/25/21 07/08/22 Unknown History Potassium Citrate [Urocit-K 15] 15 meq PO BID 12/25/21 07/08/22 Unknown History carvediloL [Coreg] 6.25 mg PO BID 12/25/21 07/08/22 Unknown History cloNIDine [Catapres] 0.1 mg PO PRN PRN 12/25/21 07/08/22 Unknown History NIFEdipine [Nifedipine ER] 60 mg PO BID 01/02/22 07/08/22 Unknown History hydroCHLOROthiazide [HCTZ] 25 mg PO QDAY 01/02/22 07/08/22 Unknown History Active Medications Hydrocodone Bitart/Acetaminophen (Hydrocodone/Acetaminophen 5-325 Mg Tab) 2 each PO ONCE PRN PRN Reason: Pain, Moderate (4-6) Stop: 07/16/22 17:00 Hydromorphone HCl (Hydromorphone 0.5 Mg/0.5 Ml Inj) 0.25 mg IV Q10MIN PRN PRN Reason: Pain , Severe (7-10) Stop: 07/16/22 18:00 Sodium Chloride (Nacl 0.9% 1000 Ml) 1,000 mls @ 42 mls/hr IV DIRECT OSIRIS Stop: 07/16/22 23:59 Gentamicin Sulfate/Sodium Chloride (Gentamicin/Ns 80 Mg/100 Ml) 100 mls @ 200 mls/hr IV PREOP OSIRIS Stop: 07/16/22 17:00 Ondansetron HCl (Ondansetron 4 Mg/2 Ml Inj) 4 mg IV ONCE PRN PRN Reason: Nausea And Vomiting Stop: 07/16/22 18:00 - Brief post op/procedure progress note Date of procedure: 07/16/22 Pre-op diagnosis: left hydro, s/p stent, solitary kidney Post-op diagnosis: same Procedure: cysto, rpg, stent exchange ----6Fx 24xm Anesthesia: GETA Surgeon: SHAR COULTER Estimated blood loss: none Condition: stable - Hospital course Hospital course: macrobid & ultram on chart - Disposition Condition at discharge: Stable Disposition: 01 HOME / SELF CARE / HOMELESS Short Stay Discharge Plan Follow up with: KOFI NAVARRETE MD [Primary Care Provider] - 7 Days
--- NOTE | 2022-07-16 08:57 | Operative Report ---
DATE OF SURGERY: 07/16/2022 PREOPERATIVE DIAGNOSES: Left hydronephrosis, solitary left kidney, height indwelling double-J stent. POSTOPERATIVE DIAGNOSES: Left hydronephrosis, solitary left kidney, height indwelling double-J stent. PROCEDURE PERFORMED: Cystoscopy, left retrograde pyelogram, double-J stent exchange (6-Armenian 24 cm with a short internal string). SURGEON: Manny Lazo MD ANESTHESIA: General. ESTIMATED BLOOD LOSS: Minimal. FLUIDS: Crystalloid. COMPLICATIONS: No complications. INDICATIONS: This 87-year-old female known to our service with a solitary left kidney, hydronephrosis due to recurrent stones in the past. She has been undergoing double-J stent exchange. Risks, benefits, complications were explained. Her creatinine on July 11 was 1.8. DESCRIPTION OF PROCEDURE: The patient was taken to the operative suite, placed in a supine position. After adequate general anesthesia, placed in the dorsal lithotomy position, prepped and draped in a sterile fashion. Pancystourethroscopy was performed with a 22-Armenian Storz cystoscope. No acute bladder pathology. A stent could be seen emanating from the left ureteral orifice. It was engaged with a grasper, pulled out to the meatus. A 0.035 wire was advanced into the renal pelvis. Old stent was removed. A new 6-Armenian 24 cm double-J stent was placed with a short internal string. Fluoroscopy confirmed adequate position and injected a retrograde. I did not see any stones in the collecting system. Bladder was drained. The patient tolerated the procedure well. She will go home on Macrobid and Ultram. TID: [id number] RECEIPT: [id number] C/ELISSA
[2022-07-16] MEDS ORDERED: ALBUTEROL 2.5 MG/3 ML NEBU IH SCH (09:00)
[2022-07-16] MEDS ORDERED: SODIUM CHLORIDE FOR INHALATION NEBU 3 ML ONE (09:02)
[2022-07-16] MEDS ORDERED: ALBUTEROL 2.5 MG/3 ML NEBU IH ONE (09:02)
[2022-07-16 10:06] VITALS: BP 163/71
--- NOTE | 2022-07-16 10:25 | Fluoroscopy Report ---
[place] retrograde urography INDICATION / CLINICAL INFORMATION: LEFT HYDRONEPHROSIS. COMPARISON: None available. FINDINGS: Left double-J stent exchange. Fluoroscopy time: 12 seconds.. Fluoroscopic images: 4. Signer Name: Cliff Sam MD Signed: 07/16/2022 10:20 AM Workstation Name: [email or web address]
== END 2022-07-16 10:35 | disposition home or self-care (01) ==
LOC: OR 05:39
PROVIDERS: ATTEND Urology
DX: N13.2 Hydronephrosis with renal and ureteral calculous obstruction (principal); I42.9 Cardiomyopathy, unspecified; E78.00 Pure hypercholesterolemia, unspecified; I48.91 Unspecified atrial fibrillation; I10 Essential (primary) hypertension; I12.9 Hypertensive chronic kidney disease with stage 1 through stage 4 chronic kidney disease, or unspecified chronic kidney disease; N18.9 Chronic kidney disease, unspecified; M19.90 Unspecified osteoarthritis, unspecified site; F41.9 Anxiety disorder, unspecified; D64.9 Anemia, unspecified; Z20.822 Contact with and (suspected) exposure to COVID-19; Z88.0 Allergy status to penicillin; Z79.899 Other long term (current) drug therapy; Z87.891 Personal history of nicotine dependence; Z95.0 Presence of cardiac pacemaker; Z90.49 Acquired absence of other specified parts of digestive tract; Z90.710 Acquired absence of both cervix and uterus; Z90.711 Acquired absence of uterus with remaining cervical stump; Z90.5 Acquired absence of kidney; Z98.890 Other specified postprocedural states
CPT/HCPCS: 36415; 52332; 74420; 80053; 85027; C1758; C1769; C1889; J1580; J1815; J2405; J2704; J2710; J3010; J3490; J7030; Q9967; U0003